=== PATIENT | female | born 1975 | race Caucasian/White ===

== ENCOUNTER 2022-07-25 15:22 | Emergency (ER) | payer OTHER ==
[~2022-07-25] VITALS: Ht 172 cm; Wt 115.0 kg
[2022-07-25] MEDS ORDERED: SEMA7TAB2 (15:49)
[2022-07-25] MEDS ORDERED: ATOR10TA66 (15:49)
[2022-07-25] MEDS ORDERED: METF-865 (15:49)
[2022-07-25] MEDS ORDERED: GABAPENTIN PO (15:49)
[2022-07-25] MEDS ORDERED: LISI10TA25 (15:49)
[2022-07-25] MEDS ORDERED: ASPIRIN 81 MG CHEW (CHILDREN'S ASA) PO ONE (16:00)
--- NOTE | 2022-07-25 16:02 | ED Chest Pain ---
General Chief Complaint: Chest Pain Stated Complaint: HEART PROBLEMS Nursing Triage Note: PT PRESENTS TO ED VIA POV FROM [facility] FOR INTERMITTENT CP SINCE FRIDAY. PT REPORTS L SIDED CP THAT RADIATES TO L JAW AND NECK. PT REPROTS IT HAS LESSENED IN INTENSITY SINCE BEING AT [facility]. PT ALSO REPORTS INCREASE IN PAIN WITH INSPITATION. Source: patient Exam Limitations: no limitations History of Present Illness Date Seen by Provider: Jul 25, 2022 Time Seen by Provider: 15:42 Initial Comments Patient is a 47-year-old female who presents to the emergency department with a chief complaint of some left-sided chest pain onset when she was laying down in bed 2 or 3 nights ago that radiated up into her left neck and down her left arm. She felt clammy and weak. She states over the course of about an hour the pain subsided and she went on to sleep. Since then she has had pain in her left lung she states that is worse with taking a deep breath. She denies any current nausea shortness of breath or diaphoresis. She has a history of Kolb syndrome. She is also on antihypertensives as well as diabetes medications. She is a former smoker, only smoked recreationally. No significant family history of early coronary artery disease. She has had prior stress test 17 years ago and 23 years ago. Neither of which resulted in a cardiac cath. No fevers or chills or productive cough. No urinary complaints or GI complaints. No prolonged immobility. No history of blood clot. Currently rates the pain in her left lung at a "2" unless she takes a deep breath. She is not COVID vaccinated. 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 All other review of systems reviewed and negative except as stated Timing/Duration: 2-3 days Severity/Quality: sharp Location: other (left chest, arm and neck) Activities at Onset: none Prior CP/Workup: other (remote stress test) Modifying Factors: worse with breathing ASA po GLAZE HANDLER: No NTG SL GLAZE HANDLER: No Allergies and Home Medications Allergies Coded Allergies: No Known Drug Allergies (Unverified , 07/25/22) Patient Home Medication List Home Medication List Reviewed: Yes Atorvastatin Calcium (Atorvastatin Calcium) 10 Mg Tablet, (Reported) Entered as Reported by: SAM SANTAMARIA on 07/25/22 7872 Last Action: New Order Lisinopril (Lisinopril) 10 Mg Tablet, (Reported) Entered as Reported by: SAM SANTAMARIA on 07/25/221548 Last Action: New Order Metformin HCl (Metformin HCl ER) 500 Mg Tab.er.24h, (Reported) Entered as Reported by: SAM SANTAMARIA on 07/25/221548 Last Action: New Order Semaglutide (Rybelsus) 7 Mg Tablet, (Reported) Entered as Reported by: SAM SANTAMARIA on 07/25/221548 Last Action: New Order [Gabapentin] , 300 MG PO BID, (Reported) Entered as Reported by: SAM SANTAMARIA on 07/25/221548 Last Action: New Order Review of Systems Review of Systems Constitutional: see HPI, malaise EENTM: No Symptoms Reported Respiratory: Other (pleuritic chest pain) Cardiovascular: Chest Pain Gastrointestinal: No Symptoms Reported Genitourinary: No Symptoms Reported Musculoskeletal: no symptoms reported Skin: no symptoms reported Psychiatric/Neurological: No Symptoms Reported All Other Systems Reviewed Negative Unless Noted: Yes Past Xhnnkfw-Ewtzmq-Bwtiwk Hx Patient Social History Tobacco Use?: No Substance use?: No Alcohol Use?: Yes Alcohol Frequency: Once in a while Pt feels they are or have been: No Past Medical History Surgery/Hospitalization HX: PMH: KOLB SYNDROME, DM-ID Physical Exam Vital Signs Vital Signs - First Documented 07/25/22 15:28 Temp 37.2 Pulse 74 Resp 14 B/P (MAP) 163/92 (115) Pulse Ox 98 Capillary Refill : Less Than 3 Seconds Height, Weight, BMI Height: '" Weight: lbs. oz. 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 Norm as Tested Skin: Normal Color, Warm/Dry Progress/Results/Core Measures Results/Orders Lab Results Laboratory Tests Test 07/25/22 15:43 Range/Units White Blood Count 9.7 4.3-11.0 10^3/uL Red Blood Count 4.00 3.80-5.11 10^6/uL Hemoglobin 12.4 11.5-16.0 g/dL Hematocrit 37 35-52 % Mean Corpuscular Volume 91 80-99 fL Mean Corpuscular Hemoglobin 31 25-34 pg Mean Corpuscular Hemoglobin Concent 34 32-36 g/dL Red Cell Distribution Width 12.6 10.0-14.5 % Platelet Count 170 130-400 10^3/uL Mean Platelet Volume 11.8 9.0-12.2 fL Immature Granulocyte % (Auto) 0 % Neutrophils (%) (Auto) 73 42-75 % Lymphocytes (%) (Auto) 16 12-44 % Monocytes (%) (Auto) 10 0-12 % Eosinophils (%) (Auto) 0 0-10 % Basophils (%) (Auto) 0 0-10 % Neutrophils # (Auto) 7.0 1.8-7.8 10^3/uL Lymphocytes # (Auto) 1.5 1.0-4.0 10^3/uL Monocytes # (Auto) 1.0 0.0-1.0 10^3/uL Eosinophils # (Auto) 0.0 0.0-0.3 10^3/uL Basophils # (Auto) 0.0 0.0-0.1 10^3/uL Immature Granulocyte # (Auto) 0.0 0.0-0.1 10^3/uL Prothrombin Time 14.4 12.2-14.7 SEC INR Comment 1.1 0.8-1.4 Activated Partial Thromboplast Time 33 24-35 SEC Sodium Level 133 L 135-145 MMOL/L Potassium Level 4.2 3.6-5.0 MMOL/L Chloride Level 103 98-107 MMOL/L Carbon Dioxide Level 20 L 21-32 MMOL/L Anion Gap 10 5-14 MMOL/L Blood Urea Nitrogen 25 H 7-18 MG/DL Creatinine 1.28 0.60-1.30 MG/DL Estimat Glomerular Filtration Rate 51 BUN/Creatinine Ratio 20 Glucose Level 126 H 70-105 MG/DL Calcium Level 9.3 8.5-10.1 MG/DL Corrected Calcium 9.1 8.5-10.1 MG/DL Magnesium Level 1.9 1.6-2.4 MG/DL Total Bilirubin 1.1 H 0.1-1.0 MG/DL Aspartate Amino Transf (AST/SGOT) 40 H 5-34 U/L Alanine Aminotransferase (ALT/SGPT) 34 0-55 U/L Alkaline Phosphatase 90 40-136 U/L Myoglobin 189.6 H 10.0-92.0 NG/ML Troponin I < 0.028 <0.028 NG/ML Total Protein 8.3 H 6.4-8.2 GM/DL Albumin 4.3 3.2-4.5 GM/DL My Orders Orders - XU HEWITT MD Ekg Tracing (07/25/22 15:28) Cbc With Automated Diff (07/25/22 15:56) Magnesium (07/25/22 15:56) Chest 1 View, Ap/Pa Only (07/25/22 15:56) Comprehensive Metabolic Panel (07/25/22 15:56) Myoglobin Serum (07/25/22 15:56) Protime With Inr (07/25/22 15:56) Partial Thromboplastin Time (07/25/22 15:56) O2 (07/25/22 15:56) Monitor-Rhythm Ecg Trace Only (07/25/22 15:56) Lipid Panel (07/26/22 06:00) Ed Iv/Invasive Line Start (07/25/22 15:56) Troponin I Mcclain (07/25/22 15:56) Aspirin Chewable Tablet (Baby Aspirin Ch (07/25/22 16:00) Ct Chest W (07/25/22 16:50) Iohexol Injection (Omnipaque 350 Mg/Ml 1 (07/25/22 17:00) Received Contrast (Hold Metformin- Contr (07/25/22 17:00) Sodium Chloride Flush (Catheter Flush Sy (07/25/22 17:00) Ns (Ivpb) (Sodium Chloride 0.9% Ivpb Bag (07/25/22 17:00) Medications Given in ED Current Medications Medications Dose Ordered Sig/Jayla Route Start Time Stop Time Status Last Admin Dose Admin Aspirin 324 mg ONCE ONCE PO 07/25/22 16:00 07/25/22 16:01 DC 07/25/22 16:01 324 MG Iohexol 75 ml ONCE ONCE IV 07/25/22 17:00 07/25/22 17:01 DC 07/25/22 17:17 74 ML Sodium Chloride 10 ml NEEDED PRN IV 07/25/22 17:00 07/25/22 17:17 10 ML Sodium Chloride 100 ml ONCE ONCE IV 07/25/22 17:00 07/25/22 17:01 DC 07/25/22 17:17 80 ML Vital Signs/I&O 07/25/22 15:28 Temp 37.2 Pulse 74 Resp 14 B/P (MAP) 163/92 (115) Pulse Ox 98 Blood Pressure Mean: 115 Initial ECG Impression Date: Jul 25, 2022 Initial ECG Impression Time: 15:41 Initial ECG Rhythm: Normal Sinus Initial ECG Intervals IN interval 177 QRS 101 QTC 414 Comment Poor R wave progression over the precordium, no ectopy, no ST segment elevation or depression is noted. Nonspecific ST-T wave changes in the inferior leads with inverted T in lead III and ST flattening in aVF. Diagnostic Imaging Diagonstic Imaging: Xray Plain Films/CT/US/NM/MRI: chest Comments [facility], [facility]. [place], [place] NAME: TONJA RIOS [facility] REC#: [id number] PT STATUS: REG ER : 1975 PHYSICIAN: XU HEWITT MD ADMIT DATE: 07/25/22/ER Draft Date of Exam:07/25/22 CHEST 1 VIEW, AP/PA ONLY INDICATION: Chest pain. EXAMINATION: Frontal chest was obtained at 4:10 p.m. COMPARISON: There is no prior study for comparison. FINDINGS: The heart is borderline in size. Mediastinal silhouette is unremarkable. There is no pneumothorax or pleural fluid. There is a nodular appearing density in the left perihilar region. It measures about 2.4 cm. There are no overt bony abnormalities. IMPRESSION: 1. Suspicious nodular density in the left midlung in the perihilar region, recommend chest CT for further evaluation to exclude neoplasm. 2. Borderline heart size with no acute consolidation or pleural fluid. Report was faxed to the [facility] at 4:14 p.m., by herber. Dictated on workstation # [id number] Dict: 07/25/22 1609 Trans: 07/25/22 1615 PJE [id number] Interpreted by: CHETNA LEI MD Electronically signed by: [facility]: CT Comments [facility], [place] NAME: TONJA RIOS [facility] REC#: [id number] PT STATUS: REG ER : 1975 PHYSICIAN: XU HEWITT MD ADMIT DATE: 07/25/22/ER Draft Date of Exam:07/25/22 CT CHEST W PROCEDURE: CT chest with contrast only. TECHNIQUE: Multiple contiguous axial images were obtained through the chest after administration of intravenous contrast. Auto Exposure Controls were utilized during the CT exam to meet ALARA standards for radiation dose reduction. DATE: July 25, 2022. COMPARISON: Chest radiograph July 25, 2022. INDICATION: 47-year-old female, chest pain. FINDINGS: There is a 3 mm noncalcified right lower lobe pulmonary nodule on axial image 88. There is a large area of airspace consolidation in the left upper lobe. There is a 3 mm calcified left lower lobe granuloma. There are mild linear opacities in the left lower lobe most consistent with mild atelectasis and/or scarring. There is no pneumothorax. There is no pleural effusion. The central airways are patent. The heart is not enlarged. There is no pericardial effusion. There is an anterior pericardial lymph node measuring 10 mm in short axis on axial image 46. There is an additional mildly prominent anterior pericardial lymph node more anteriorly located as well. There is an aberrant right subclavian artery. Imaged portions of the upper abdomen are unremarkable. There is superior endplate concavity of L1 with approximately 50% height loss. There is no visible fracture line. There is no retropulsed fracture fragment. IMPRESSION: CT chest: 1. Left upper lobe airspace consolidation concerning for pneumonia or other alveolar consolidative process. Recommend correlation clinically and ensure follow-up to resolution at a minimum. 2. Age-indeterminate compression deformity of L1. Dictated on workstation # [id number] Dict: 07/25/22 1724 Trans: 07/25/22 1749 PJE [id number] Interpreted by: ANJUM CRUZ MD Electronically signed by: Departure Impression Primary Impression: Pneumonia Qualified Codes: J18.9 - Pneumonia, unspecified organism Disposition: 01 HOME, SELF-CARE Condition: Improved Departure-Patient Inst. Decision time for Depature: 17:57 Referrals: [facility] Patient Instructions: Pneumonia, Adult ED Add. Discharge Instructions: Drink plenty of fluids to stay well-hydrated. Take the cefdinir 300 mg twice a day for the next 9 days starting tomorrow. Azithromycin 1 tablet a day starting tomorrow for the next 4 days. Alternate extra strength Tylenol 2 tablets every 6 hours with 3 tablets of ibuprofen which is 600 mg every 6 hours for pain and discomfort. Always take ibuprofen with food. Return to the emergency room if after 24 to 48 hours on antibiotics you are not feeling better having less pain etc. You do have some lymph nodes that are calcified in the lungs on the left side th at we will need follow-up by your primary care doctor in 6 months. Scripts Azithromycin (Azithromycin) 250 Mg Tablet 250 MG PO DAILY, #4 TAB 0 Refills Prov: XU HEWITT MD 07/25/22 Cefdinir (Cefdinir) 300 Mg Capsule 300 MG PO BID, #18 CAP Prov: XU HEWITT MD 07/25/22 Work/School Note: Work Release Form Date Seen in the Emergency Department: Jul 25, 2022 Return to Work: Jul 29, 2022 XU HEWITT MD Jul 25, 2022 16:02
[2022-07-25 16:04] LABS: BASOPHILS % (AUTO) 0 % (0-10); EOSINOPHILS % (AUTO) 0 % (0-10); HEMATOCRIT 37 % (35-52); HEMOGLOBIN 12.4 g/dL (11.5-16.0); LYMPHOCYTES # (AUTO) 1.5 10^3/uL (1.0-4.0); LYMPHOCYTES % (AUTO) 16 % (12-44); MEAN CORPUSCULAR HEMOGLOBIN 31 pg (25-34); MEAN CORPUSCULAR HGB CONC 34 g/dL (32-36); MEAN CORPUSCULAR VOLUME 91 fL (80-99); MEAN PLATELET VOLUME 11.8 fL (9.0-12.2); MONOCYTES % (AUTO) 10 % (0-12); NEUTROPHILS % (AUTO) 73 % (42-75); PLATELET COUNT 170 10^3/uL (130-400); WHITE BLOOD COUNT 9.7 10^3/uL (4.3-11.0)
[2022-07-25 16:09] LABS: INR 1.1 (0.8-1.4); PROTHROMBIN TIME PATIENT 14.4 SEC (12.2-14.7)
[2022-07-25 16:11] LABS: ALBUMIN 4.3 GM/DL (3.2-4.5); POTASSIUM 4.2 MMOL/L (3.6-5.0)
[2022-07-25 16:12] LABS: CALCIUM 9.3 MG/DL (8.5-10.1)
[2022-07-25 16:14] LABS: TOTAL PROTEIN 8.3 GM/DL (6.4-8.2)
[2022-07-25 16:15] LABS: BILIRUBIN,TOTAL 1.1 MG/DL (0.1-1.0)
--- NOTE | 2022-07-25 16:15 | Diagnostic Imaging Report ---
INDICATION: Chest pain. EXAMINATION: Frontal chest was obtained at 4:10 p.m. COMPARISON: There is no prior study for comparison. FINDINGS: The heart is borderline in size. Mediastinal silhouette is unremarkable. There is no pneumothorax or pleural fluid. There is a nodular appearing density in the left perihilar region. It measures about 2.4 cm. There are no overt bony abnormalities. IMPRESSION: 1. Suspicious nodular density in the left midlung in the perihilar region, recommend chest CT for further evaluation to exclude neoplasm. 2. Borderline heart size with no acute consolidation or pleural fluid. Report was faxed to the [facility] at 4:14 p.m., by herber. Dictated by: Dictated on workstation # [id number]
[2022-07-25 16:17] LABS: CREATININE SERUM 1.28 MG/DL (0.60-1.30)
[2022-07-25 16:20] LABS: MAGNESIUM 1.9 MG/DL (1.6-2.4)
[2022-07-25] MEDS ORDERED: HOLD METFORMIN - RECEIVED CONTRAST 20 ML VIAL IV SCH (17:00)
[2022-07-25] MEDS ORDERED: NS 100 ML (IVPB) BAG IV ONE (17:00)
[2022-07-25] MEDS ORDERED: CATHETER FLUSH 10 ML SYR IV PRN (17:00)
[2022-07-25] MEDS ORDERED: IOHEXOL 350 MG/ML 100 ML (OMNIPAQUE 350) VIAL IV ONE (17:00)
--- NOTE | 2022-07-25 17:49 | Diagnostic Imaging Report ---
PROCEDURE: CT chest with contrast only. TECHNIQUE: Multiple contiguous axial images were obtained through the chest after administration of intravenous contrast. Auto Exposure Controls were utilized during the CT exam to meet ALARA standards for radiation dose reduction. DATE: July 25, 2022. COMPARISON: Chest radiograph July 25, 2022. INDICATION: 47-year-old female, chest pain. FINDINGS: There is a 3 mm noncalcified right lower lobe pulmonary nodule on axial image 88. There is a large area of airspace consolidation in the left upper lobe. There is a 3 mm calcified left lower lobe granuloma. There are mild linear opacities in the left lower lobe most consistent with mild atelectasis and/or scarring. There is no pneumothorax. There is no pleural effusion. The central airways are patent. The heart is not enlarged. There is no pericardial effusion. There is an anterior pericardial lymph node measuring 10 mm in short axis on axial image 46. There is an additional mildly prominent anterior pericardial lymph node more anteriorly located as well. There is an aberrant right subclavian artery. Imaged portions of the upper abdomen are unremarkable. There is superior endplate concavity of L1 with approximately 50% height loss. There is no visible fracture line. There is no retropulsed fracture fragment. IMPRESSION: CT chest: 1. Left upper lobe airspace consolidation concerning for pneumonia or other alveolar consolidative process. Recommend correlation clinically and ensure follow-up to resolution at a minimum. 2. Age-indeterminate compression deformity of L1. Dictated by: Dictated on workstation # [id number]
[2022-07-25] MEDS ORDERED: CEFD300C3 PO (17:58)
[2022-07-25] MEDS ORDERED: AZIT250T12 PO (17:58)
[2022-07-25] MEDS ORDERED: cefTRIAXone 1 GM PRE-MIX 50 ML IV ONE (18:00)
[2022-07-25] MEDS ORDERED: AZITHROMYCIN 250 MG TAB (ZITHROMAX) PO ONE (18:15)
[2022-07-25 18:29] VITALS: BP 141/95
== END 2022-07-25 18:29 | disposition home or self-care (01) ==
LOC: ER 15:25
DX: J18.9 Pneumonia, unspecified organism (principal); E11.9 Type 2 diabetes mellitus without complications; Z87.891 Personal history of nicotine dependence; Z28.310 Unvaccinated for COVID-19; Z79.899 Other long term (current) drug therapy; Z79.4 Long term (current) use of insulin
CPT/HCPCS: 36415; 71045; 71260; 80053; 83735; 83874; 84484; 85025; 85610; 85730; 93005; 93041; 96365

== ENCOUNTER → 2023-08-15 | Outpatient (CLI) | payer OTHER ==
[~2023-08-15] MED LIST: ATOR10TA66; AZIT250T12 PO; CEFD300C3 PO; GABAPENTIN PO; LISI10TA25; METF-865; SEMA7TAB2
--- NOTE | 2023-08-15 15:25 | Diagnostic Imaging Report ---
CLINICAL INDICATION: Patient has had a previous lumbar spine surgery. Patient is clinical back pain. EXAM: MRI of the lumbar spine performed without IV contrast. Sequences include sagittal T2, sagittal T1, sagittal T2 fat-sat, and axial T2. Comparisons: None. FINDINGS: There is no acute lumbar spine fracture or dislocation. There is a chronic anterior wedge compression fracture deformity involving the L1 vertebra with roughly 80% loss of height. There are Modic type II degenerative signal changes involving the L1 vertebra and L5 vertebra. There are Modic type I degenerative signal changes involving the L3-L4 and L5-S1 endplates. There is no significant paraspinal soft tissue abnormality. The visualized portions of the distal thoracic spinal cord, conus medullaris, and cauda equina nerve roots are unremarkable. The conus medullaris tip is seen at the L1-L2 intervertebral level. There are hypertrophic spurs involving the lumbar spine. T12-L1: There is mild bilateral facet arthropathy. There is no significant central canal or neural foramen narrowing. L1-L2: Is mild diffuse disk bulge. There is moderate left facet arthropathy and mild right facet arthropathy. There is no significant central canal stenosis. There is no significant neural foramen narrowing. L2-L3: There is minimal disk bulge. There is moderate left facet arthropathy and mild right facet arthropathy. There is no significant central canal or neural foramen narrowing. L3-L4: There is broad posterior disk bulge. There is severe left facet arthropathy and mild to moderate right facet arthropathy. There is mild central canal stenosis. There is mild to moderate left neural foramen narrowing. There is no significant right neural foramen narrowing. L5-S1: There is mild diffuse disk bulge and moderate loss of disk space height. There is severe left facet arthropathy and moderate right facet arthropathy. There is no significant central canal stenosis. There is mild bilateral neural foramen narrowing. L5-S1: There is a small posterior disk bulge. There is moderate left facet arthropathy and mild to moderate right facet arthropathy. There is no significant central canal stenosis. There is mild left neural foramen narrowing and mild to moderate right neural foramen narrowing. IMPRESSION: 1: There is no acute lumbar spine fracture or dislocation. 2: There is a chronic anterior wedge compression fracture deformity involving the L1 vertebra. 2: There is multilevel lumbar spine degenerative disease, which is described above. Dictated by: Dictated on workstation # [id number]
== END ==
LOC: RAD 09:51
DX: M48.56XA Collapsed vertebra, not elsewhere classified, lumbar region, initial encounter for fracture (principal); M51.16 Intervertebral disc disorders with radiculopathy, lumbar region; M51.17 Intervertebral disc disorders with radiculopathy, lumbosacral region; M47.26 Other spondylosis with radiculopathy, lumbar region; M47.27 Other spondylosis with radiculopathy, lumbosacral region
CPT/HCPCS: 72148